=== PATIENT | female | born 1990 | race Caucasian/White ===

== ENCOUNTER 2020-12-06 20:17 | Emergency (ER) | payer OTHER ==
[2020-12-06 20:27] VITALS: BP 123/79; PULSE 65; TEMP 98.4; BMI 22.3
[2020-12-06] MEDS ORDERED: IBUPROFEN 400 MG TABLET (FP) PO ONE ×2 (20:51→20:56)
== END 2020-12-06 21:19 | disposition home or self-care (01) ==
LOC: FER 20:17
DX: S16.1XXA Strain of muscle, fascia and tendon at neck level, initial encounter (principal); S80.01XA Contusion of right knee, initial encounter
CPT/HCPCS: 73560-TC-RT-FY; 99283-25